=== PATIENT | female | born 1965 | race Two or more races ===

== ENCOUNTER → 2017-03-20 | Outpatient (CLI) | payer BC ==
[2017-03-20 13:03] LABS: ADD MAN DIFF? NO
[2017-03-20 13:07] LABS: BASO % 1 % (0-3); EOS % 1 % (0-3); LYMPH % 21 % (24-48); MEAN CORPUSCULAR HEMOGLOBIN 21 pg (25-35); MEAN CORPUSCULAR HGB CONC 31 g/dL (31-37); MEAN CORPUSCULAR VOLUME 67 fL (79-100); MONO # 0.2 x10^3/uL (0.0-1.1); MONO % 4 % (0-9); NEUT # 3.3 x10^3uL (1.8-7.7); NEUT % 73 % (31-73); PLATELET COUNT 212 x10^3/uL (140-400); RED BLOOD COUNT 2.89 x10^6/uL (3.50-5.40); RED CELL DISTRIBUTION WIDTH 17.9 % (11.5-14.5); WHITE BLOOD COUNT 4.5 x10^3/uL (4.0-11.0)
[2017-03-20 13:09] LABS: HEMATOCRIT 19.3 % (36.0-47.0); HEMOGLOBIN 5.9 g/dL (12.0-15.5)
[2017-03-20 14:00] LABS: IMMEDIATE SPIN CROSSMATCH 1 2
[2017-03-20 15:03] LABS: ANISOCYTOSIS MOD; HYPOCHROMIA MARKED; MICROCYTOSIS MARKED; PLT ESTIMATE ADEQUATE (ADEQUATE); POLYCHROMASIA SLIGHT
== END | disposition home or self-care (01) ==
LOC: OPS 12:37
DX: D64.9 Anemia, unspecified (principal)
CPT/HCPCS: 36415; 36430; 85025; 86850; 86900; 86901; 86920; P9016